=== PATIENT | male | born 1950 | race Caucasian/White ===

== ENCOUNTER 2017-12-24 13:47 | Emergency (ER) | payer MEDICARE, OTHER ==
[2017-12-24 14:35] LABS: ADD MAN DIFF? NO
[2017-12-24 14:37] LABS: WHITE BLOOD COUNT 7.7 10^3/ul (4.8-10.8)
[2017-12-24 14:37] LABS: ABNORMAL IP MESSAGE 1; BASOPHILS % 0.1 % (0.0-2.0); EOSINOPHILS % 0.3 % (0.0-7.0); HEMATOCRIT 23.2 % (42.0-52.0); HEMOGLOBIN 7.6 g/dl (14.0-18.0); LYMPHOCYTES # 0.5 10^3/ul (0.8-2.9); LYMPHOCYTES % 6.8 % (15.0-51.0); MEAN CORPUSCULAR HEMOGLOBIN 29.5 pg (29.0-33.0); MEAN CORPUSCULAR HGB CONC 32.8 g/dl (32.0-37.0); MEAN CORPUSCULAR VOLUME 89.9 fl (82.0-101.0); MEAN PLATELET VOLUME 8.4 fl (7.4-10.4); MONOCYTE # 0.5 10^3/ul (0.3-0.9); MONOCYTES % 6.8 % (0.0-11.0); NEUTROPHIL # 6.3 10^3/ul (1.6-7.5); NEUTROPHILS % 82.1 % (39.0-77.0); NUCLEATED RED BLOOD CELLS% 0.4 /100WBC (0.0-0.0); PLATELET COUNT 126 10^3/UL (140-415); POSITIVE DIFF @See below; RED BLOOD COUNT 2.58 10^6/ul (4.70-6.10)
[2017-12-24 14:58] LABS: INR 1.13; PROTIME 14.7 Sec (11.9-14.9); PT RATIO 1.1
[2017-12-24 14:59] LABS: PARTIAL THROMBOPLASTIN TIME 32.1 Sec (25.0-35.0)
[2017-12-24 15:22] LABS: ALANINE AMINOTRANSFERASE 69 IU/L (13-69); ALKALINE PHOSPHATASE 272 IU/L (42-121); ANION GAP 18 (8-16); ASPARTATE AMINO TRANSFERASE 68 IU/L (15-46); BILIRUBIN,INDIRECT 0.3 mg/dl (0-1.1); BILIRUBIN,TOTAL 0.3 mg/dl (0.2-1.3); BLOOD UREA NITROGEN 22 mg/dl (7-20); CALCIUM 8.2 mg/dl (8.4-10.2); CARBON DIOXIDE 22 mmol/L (21-31); CHLORIDE 94 mmol/L (97-110); CREATININE 0.54 mg/dl (0.61-1.24); GLUCOSE 127 mg/dl (70-220); POTASSIUM 4.5 mmol/L (3.5-5.1); SODIUM 129 mmol/L (135-144); TOTAL PROTEIN 6.3 g/dl (6.1-8.1)
[2017-12-24 17:03] LABS: IMMEDIATE SPIN CROSSMATCH 1 2
[2017-12-24] MEDS: HYDROCODONE/APAP (5/325) TAB PO (17:55)
[2017-12-24] MEDS: ONDANSETRON (ODT) 4 MG TAB ODT (17:55)
== END 2017-12-24 22:30 | disposition home or self-care (01) ==
LOC: E/R 22:30
DX: D64.9 Anemia, unspecified (principal); D69.6 Thrombocytopenia, unspecified; E87.1 Hypo-osmolality and hyponatremia; R94.5 Abnormal results of liver function studies; R40.2142 Coma scale, eyes open, spontaneous, at arrival to emergency department; R40.2252 Coma scale, best verbal response, oriented, at arrival to emergency department; R40.2362 Coma scale, best motor response, obeys commands, at arrival to emergency department; I10 Essential (primary) hypertension; Z85.46 Personal history of malignant neoplasm of prostate
CPT/HCPCS: 36415; 36430; 80053; 85025; 85610; 85730; 86850; 86900; 86901; 86920; 93005; 99285-25

== ENCOUNTER 2018-01-24 16:33 | Inpatient (IN) | payer MEDICARE, OTHER ==
[2018-01-24] MEDS: PIPER-TAZO 3.375 GM IV (PMX) 100 ML IVPB (19:56)
[2018-01-24] MEDS: ONDANSETRON 4 MG INJ IV (19:57)
[2018-01-24] MEDS: SODIUM CHLORIDE 0.9% 1L BAG IV* (19:57)
[2018-01-24] MEDS: morphine 4 MG/ML VIAL IV (19:57)
[2018-01-24 20:12] LABS: ABNORMAL IP MESSAGE 1; HEMATOCRIT 21.3 % (42.0-52.0); MEAN CORPUSCULAR HEMOGLOBIN 29.2 pg (29.0-33.0); MEAN CORPUSCULAR HGB CONC 32.4 g/dl (32.0-37.0); MEAN CORPUSCULAR VOLUME 90.3 fl (82.0-101.0); MEAN PLATELET VOLUME 9.8 fl (7.4-10.4); NUCLEATED RED BLOOD CELLS% 0.5 /100WBC (0.0-0.0); PLATELET COUNT 65 10^3/UL (140-415); POSITIVE DIFF @See below; RED BLOOD COUNT 2.36 10^6/ul (4.70-6.10); RED CELL DISTRIBUTION WIDTH 18.1 % (11.5-14.5)
[2018-01-24 20:12] LABS: WHITE BLOOD COUNT 6.4 10^3/ul (4.8-10.8)
[2018-01-24 20:24] LABS: ALANINE AMINOTRANSFERASE 63 IU/L (13-69); ALBUMIN 2.9 g/dl (3.3-4.9); ALKALINE PHOSPHATASE 449 IU/L (42-121); ANION GAP 17 (8-16); ASPARTATE AMINO TRANSFERASE 69 IU/L (15-46); BILIRUBIN,INDIRECT 0.3 mg/dl (0-1.1); BILIRUBIN,TOTAL 0.3 mg/dl (0.2-1.3); BLOOD UREA NITROGEN 18 mg/dl (7-20); CALCIUM 7.9 mg/dl (8.4-10.2); CARBON DIOXIDE 24 mmol/L (21-31); CHLORIDE 89 mmol/L (97-110); CREATININE 0.86 mg/dl (0.61-1.24); GLUCOSE 152 mg/dl (70-220); POTASSIUM 4.3 mmol/L (3.5-5.1); PROTIME 15.4 Sec (11.9-14.9); PT RATIO 1.2; SODIUM 126 mmol/L (135-144); TOTAL PROTEIN 6.1 g/dl (6.1-8.1)
[2018-01-24 20:25] LABS: PARTIAL THROMBOPLASTIN TIME 38.2 Sec (25.0-35.0)
[2018-01-24 20:28] LABS: ADD MAN DIFF? YES; HEMOGLOBIN 6.9 g/dl (14.0-18.0)
[2018-01-24 20:34] LABS: B-TYPE NATRIURETIC PEPTIDE 761 PG/ML (0-125)
[2018-01-24 20:36] LABS: ANISOCYTOSIS 1+ (0-0); BAND NEUTROPHILS #M 0.4 10^3/ul (0.0-0.6); BAND NEUTROPHILS % (M) 7 % (0-4); EOSINOPHILS % (M) 1 % (0-7); ERYTHROBLAST% (NRBC) (M) 1 % (0-0); LYMPHOCYTES #M 0.3 10^3/ul (0.8-2.9); LYMPHOCYTES % (M) 5 % (15-51); MICROCYTOSIS 1+ (0-0); MONOCYTE #M 0.1 10^3/ul (0.3-0.9); MONOCYTES % (M) 3 % (0-11); PLATELET ESTIMATE DECREASED; POLYCHROMASIA 2+ (0-0); SEG NEUT #M 5.4 10^3/ul (1.6-7.5); SEGMENTED NEUTROPHILS (M) % 84 % (39-77); SMUDGE%M 6 % (0-0)
[2018-01-24 20:37] LABS: TROPONIN-I < 0.012 ng/ml (0.00-0.12)
[2018-01-24 20:37] LABS: LACTIC ACID 2.2 mmol/L (0.5-2.0)
[2018-01-24 22:02] LABS: ADD UMIC YES; UR ASCORBIC ACID NEGATIVE (NEGATIVE); UR BILIRUBIN (Dip) NEGATIVE (NEGATIVE); UR BLOOD (Dip) 1+ mg/dL (NEGATIVE); UR CLARITY CLEAR (CLEAR); UR COLOR YELLOW (YELLOW); UR GLUCOSE (Dip) NEGATIVE (NEGATIVE); UR KETONES (Dip) NEGATIVE (NEGATIVE); UR LEUKOCYTE ESTERASE (Dip) NEGATIVE Leu/ul (NEGATIVE); UR NITRITE (Dip) NEGATIVE (NEGATIVE); UR RBC 1 /HPF (0-5); UR SPECIFIC GRAVITY (Dip) 1.009 (1.003-1.030); UR TOTAL PROTEIN (Dip) NEGATIVE (NEGATIVE); UR UROBILINOGEN (Dip) NEGATIVE (NEGATIVE); UR WBC 1 /HPF (0-5)
[2018-01-24] MEDS: morphine 2 MG INJ IV (22:02)
[2018-01-24] MEDS: HYDROCODONE/APAP (5/325) TAB PO (22:04)
[2018-01-24 22:25] LABS: LACTIC ACID 1.4 mmol/L (0.5-2.0)
[2018-01-25 00:04] LABS: LACTIC ACID 1.4 mmol/L (0.5-2.0)
[2018-01-25] MEDS: HYDROCODONE/APAP (10/325) TAB PO ×3 (05:09→19:40)
[2018-01-25] MEDS: SOD CHLORIDE 0.9% 1,000 ML IV (05:10)
[2018-01-25] MEDS: FUROSEMIDE 20 MG TAB PO (05:31)
[2018-01-25] MEDS: PANTOPRAZOLE 40 MG INJ IV (05:31)
[2018-01-25 07:11] LABS: ADD MAN DIFF? NO
[2018-01-25 07:20] LABS: WHITE BLOOD COUNT 6.5 10^3/ul (4.8-10.8)
[2018-01-25 07:20] LABS: ABNORMAL IP MESSAGE 1; BASOPHILS % 0.2 % (0.0-2.0); HEMATOCRIT 23.3 % (42.0-52.0); HEMOGLOBIN 7.6 g/dl (14.0-18.0); LYMPHOCYTES # 0.4 10^3/ul (0.8-2.9); LYMPHOCYTES % 5.7 % (15.0-51.0); MEAN CORPUSCULAR HEMOGLOBIN 29.1 pg (29.0-33.0); MEAN CORPUSCULAR HGB CONC 32.6 g/dl (32.0-37.0); MEAN CORPUSCULAR VOLUME 89.3 fl (82.0-101.0); MEAN PLATELET VOLUME 9.8 fl (7.4-10.4); MONOCYTE # 0.4 10^3/ul (0.3-0.9); MONOCYTES % 6.7 % (0.0-11.0); NEUTROPHIL # 5.4 10^3/ul (1.6-7.5); NEUTROPHILS % 84.1 % (39.0-77.0); NUCLEATED RED BLOOD CELLS% 0.5 /100WBC (0.0-0.0); PLATELET COUNT 55 10^3/UL (140-415); POSITIVE DIFF @See below; RED BLOOD COUNT 2.61 10^6/ul (4.70-6.10); RED CELL DISTRIBUTION WIDTH 16.9 % (11.5-14.5)
[2018-01-25 07:52] LABS: ALANINE AMINOTRANSFERASE 56 IU/L (13-69); ALBUMIN 2.5 g/dl (3.3-4.9); ALBUMIN/GLOBULIN RATIO 0.83; ALKALINE PHOSPHATASE 400 IU/L (42-121); ANION GAP 9 (8-16); ASPARTATE AMINO TRANSFERASE 63 IU/L (15-46); BILIRUBIN,INDIRECT 0.5 mg/dl (0-1.1); BILIRUBIN,TOTAL 0.5 mg/dl (0.2-1.3); BLOOD UREA NITROGEN 11 mg/dl (7-20); CALCIUM 7.8 mg/dl (8.4-10.2); CARBON DIOXIDE 27 mmol/L (21-31); CHLORIDE 98 mmol/L (97-110); CREATININE 0.52 mg/dl (0.61-1.24); GLUCOSE 117 mg/dl (70-220); SODIUM 130 mmol/L (135-144); TOTAL PROTEIN 5.5 g/dl (6.1-8.1)
[2018-01-25] MEDS: DOCUSATE SODIUM 100 MG CAP PO ×2 (08:34→20:43)
[2018-01-25] MEDS: FERROUS SULFATE (EC) 325 MG TAB PO ×2 (08:34→20:43)
[2018-01-25] MEDS: BENAZEPRIL 20 MG TAB PO (08:35)
[2018-01-25] MEDS ORDERED: ZOLPIDEM 5 MG TAB PO (16:00)
[2018-01-25] MEDS: CYCLOBENZAPRINE 10 MG TAB PO (16:34)
[2018-01-25] MEDS: SOD FERRIC GLUC COMPLX 125 MG in SOD CHLORIDE 0.9% 100 ML IVPB (16:34)
[2018-01-25] MEDS: CEFTRIAXONE 1 GM/50 ML (PMX) 50 ML IVPB (17:59)
[2018-01-26] MEDS: CYCLOBENZAPRINE 10 MG TAB PO ×3 (00:05→20:56)
[2018-01-26] MEDS: SOD CHLORIDE 0.9% 1,000 ML IV ×2 (01:00→14:05)
[2018-01-26] MEDS: HYDROCODONE/APAP (10/325) TAB PO ×3 (04:00→20:57)
[2018-01-26] MEDS: PANTOPRAZOLE 40 MG INJ IV (05:37)
[2018-01-26] MEDS: FUROSEMIDE 20 MG TAB PO (05:37)
[2018-01-26 08:41] LABS: ADD MAN DIFF? NO
[2018-01-26 08:47] LABS: ABNORMAL IP MESSAGE 1; BASOPHILS % 0.4 % (0.0-2.0); EOSINOPHILS % 0.2 % (0.0-7.0); HEMATOCRIT 22.2 % (42.0-52.0); HEMOGLOBIN 7.2 g/dl (14.0-18.0); LYMPHOCYTES # 0.4 10^3/ul (0.8-2.9); LYMPHOCYTES % 7.8 % (15.0-51.0); MEAN CORPUSCULAR HEMOGLOBIN 29.4 pg (29.0-33.0); MEAN CORPUSCULAR HGB CONC 32.4 g/dl (32.0-37.0); MEAN CORPUSCULAR VOLUME 90.6 fl (82.0-101.0); MEAN PLATELET VOLUME 9.7 fl (7.4-10.4); MONOCYTE # 0.4 10^3/ul (0.3-0.9); MONOCYTES % 7.6 % (0.0-11.0); NEUTROPHIL # 4.6 10^3/ul (1.6-7.5); NEUTROPHILS % 82.2 % (39.0-77.0); NUCLEATED RED BLOOD CELLS% 0.4 /100WBC (0.0-0.0); PLATELET COUNT 47 10^3/UL (140-415); POSITIVE DIFF @See below; RED BLOOD COUNT 2.45 10^6/ul (4.70-6.10); RED CELL DISTRIBUTION WIDTH 17.2 % (11.5-14.5)
[2018-01-26 08:47] LABS: WHITE BLOOD COUNT 5.5 10^3/ul (4.8-10.8)
[2018-01-26] MEDS ORDERED: BENAZEPRIL 20 MG TAB PO (09:00)
[2018-01-26 09:16] LABS: ANION GAP 11 (8-16); BLOOD UREA NITROGEN 8 mg/dl (7-20); CALCIUM 7.6 mg/dl (8.4-10.2); CARBON DIOXIDE 26 mmol/L (21-31); CHLORIDE 95 mmol/L (97-110); CREATININE 0.46 mg/dl (0.61-1.24); GLUCOSE 108 mg/dl (70-220); POTASSIUM 3.8 mmol/L (3.5-5.1); SODIUM 128 mmol/L (135-144)
[2018-01-26] MEDS: BENAZEPRIL 20 MG TAB PO (09:31)
[2018-01-26] MEDS: FERROUS SULFATE (EC) 325 MG TAB PO ×2 (09:31→20:54)
[2018-01-26] MEDS: DOCUSATE SODIUM 100 MG CAP PO ×2 (09:31→20:55)
[2018-01-26] MEDS: SOD FERRIC GLUC COMPLX 125 MG in SOD CHLORIDE 0.9% 100 ML IVPB (16:58)
[2018-01-26] MEDS: SOD CHLORIDE 0.9% 100 ML (16:59)
[2018-01-26] MEDS: IOHEXOL 300MG/ML 150 ML BTL (17:00)
[2018-01-26] MEDS: CEFTRIAXONE 1 GM/50 ML (PMX) 50 ML IVPB (18:03)
[2018-01-26] MEDS: CEPASTAT LOZENGE MT (21:14)
[2018-01-26 23:21] LABS: IMMEDIATE SPIN CROSSMATCH 1 3
[2018-01-27] MEDS: HYDROCODONE/APAP (10/325) TAB PO ×3 (04:15→20:04)
[2018-01-27] MEDS: PANTOPRAZOLE 40 MG INJ IV (06:19)
[2018-01-27] MEDS: FUROSEMIDE 20 MG TAB PO (06:20)
[2018-01-27 08:42] LABS: ADD MAN DIFF? NO
[2018-01-27 08:45] LABS: ABNORMAL IP MESSAGE 1; BASOPHILS % 0.4 % (0.0-2.0); EOSINOPHILS % 0.2 % (0.0-7.0); HEMATOCRIT 25.5 % (42.0-52.0); HEMOGLOBIN 8.4 g/dl (14.0-18.0); LYMPHOCYTES # 0.4 10^3/ul (0.8-2.9); LYMPHOCYTES % 6.6 % (15.0-51.0); MEAN CORPUSCULAR HEMOGLOBIN 29.6 pg (29.0-33.0); MEAN CORPUSCULAR HGB CONC 32.9 g/dl (32.0-37.0); MEAN CORPUSCULAR VOLUME 89.8 fl (82.0-101.0); MEAN PLATELET VOLUME 9.6 fl (7.4-10.4); MONOCYTE # 0.4 10^3/ul (0.3-0.9); MONOCYTES % 6.6 % (0.0-11.0); NEUTROPHIL # 4.7 10^3/ul (1.6-7.5); NEUTROPHILS % 83.5 % (39.0-77.0); PLATELET COUNT 46 10^3/UL (140-415); POSITIVE DIFF @See below; RED BLOOD COUNT 2.84 10^6/ul (4.70-6.10); RED CELL DISTRIBUTION WIDTH 16.4 % (11.5-14.5)
[2018-01-27 08:45] LABS: WHITE BLOOD COUNT 5.6 10^3/ul (4.8-10.8)
[2018-01-27 09:11] LABS: ANION GAP 12 (8-16); BLOOD UREA NITROGEN 6 mg/dl (7-20); CALCIUM 7.6 mg/dl (8.4-10.2); CARBON DIOXIDE 25 mmol/L (21-31); CHLORIDE 95 mmol/L (97-110); CREATININE 0.44 mg/dl (0.61-1.24); GLUCOSE 103 mg/dl (70-220); POTASSIUM 3.5 mmol/L (3.5-5.1); SODIUM 128 mmol/L (135-144)
[2018-01-27] MEDS: CEPASTAT LOZENGE MT (09:47)
[2018-01-27] MEDS: CYCLOBENZAPRINE 10 MG TAB PO ×2 (09:48→21:29)
[2018-01-27] MEDS: DOCUSATE SODIUM 100 MG CAP PO ×2 (09:48→21:29)
[2018-01-27] MEDS: FERROUS SULFATE (EC) 325 MG TAB PO ×2 (09:48→21:29)
[2018-01-27] MEDS: BENAZEPRIL 20 MG TAB PO (09:49)
[2018-01-27] MEDS: SOD FERRIC GLUC COMPLX 125 MG in SOD CHLORIDE 0.9% 100 ML IVPB (16:59)
[2018-01-27] MEDS: CEFTRIAXONE 1 GM/50 ML (PMX) 50 ML IVPB (17:10)
[2018-01-27] MEDS: TOLVAPTAN 15 MG TABLET PO (21:29)
[2018-01-28] MEDS: SOD CHLORIDE 0.9% 1,000 ML IV (01:00)
[2018-01-28] MEDS: HYDROCODONE/APAP (10/325) TAB PO ×3 (03:30→20:48)
[2018-01-28] MEDS: FUROSEMIDE 20 MG TAB PO (06:13)
[2018-01-28] MEDS: PANTOPRAZOLE 40 MG INJ IV (06:13)
[2018-01-28 09:39] LABS: ALANINE AMINOTRANSFERASE 50 IU/L (13-69); ALBUMIN 2.5 g/dl (3.3-4.9); ALBUMIN/GLOBULIN RATIO 0.86; ALKALINE PHOSPHATASE 355 IU/L (42-121); ANION GAP 14 (8-16); ASPARTATE AMINO TRANSFERASE 55 IU/L (15-46); BILIRUBIN,INDIRECT 0.4 mg/dl (0-1.1); BILIRUBIN,TOTAL 0.4 mg/dl (0.2-1.3); BLOOD UREA NITROGEN 6 mg/dl (7-20); CALCIUM 7.9 mg/dl (8.4-10.2); CARBON DIOXIDE 26 mmol/L (21-31); CHLORIDE 100 mmol/L (97-110); CREATININE 0.47 mg/dl (0.61-1.24); GLUCOSE 105 mg/dl (70-220); POTASSIUM 3.9 mmol/L (3.5-5.1); SODIUM 136 mmol/L (135-144); TOTAL PROTEIN 5.4 g/dl (6.1-8.1)
[2018-01-28] MEDS: DOCUSATE SODIUM 100 MG CAP PO ×2 (10:08→20:47)
[2018-01-28] MEDS: CYCLOBENZAPRINE 10 MG TAB PO ×2 (10:08→20:47)
[2018-01-28] MEDS: FERROUS SULFATE (EC) 325 MG TAB PO ×2 (10:08→20:48)
[2018-01-28] MEDS: BENAZEPRIL 20 MG TAB PO (10:08)
[2018-01-28] MEDS: METOCLOPRAMIDE 10 MG TAB PO (10:09)
[2018-01-28] MEDS: SOD FERRIC GLUC COMPLX 125 MG in SOD CHLORIDE 0.9% 100 ML IVPB (16:33)
[2018-01-28] MEDS: CEFTRIAXONE 1 GM/50 ML (PMX) 50 ML IVPB (18:01)
[2018-01-29] MEDS: HYDROCODONE/APAP (10/325) TAB PO ×3 (01:50→21:33)
[2018-01-29] MEDS: PANTOPRAZOLE 40 MG INJ IV (05:45)
[2018-01-29] MEDS: FUROSEMIDE 20 MG TAB PO (05:45)
[2018-01-29] MEDS: DOCUSATE SODIUM 100 MG CAP PO ×2 (08:16→21:26)
[2018-01-29] MEDS: FERROUS SULFATE (EC) 325 MG TAB PO ×2 (08:18→21:26)
[2018-01-29] MEDS: CYCLOBENZAPRINE 10 MG TAB PO ×2 (08:18→21:26)
[2018-01-29] MEDS: BENAZEPRIL 20 MG TAB PO (08:20)
[2018-01-29 08:40] LABS: ADD MAN DIFF? NO
[2018-01-29 08:51] LABS: ABNORMAL IP MESSAGE 1; BASOPHILS % 0.2 % (0.0-2.0); EOSINOPHILS % 0.4 % (0.0-7.0); HEMATOCRIT 24.7 % (42.0-52.0); HEMOGLOBIN 8.1 g/dl (14.0-18.0); LYMPHOCYTES # 0.4 10^3/ul (0.8-2.9); LYMPHOCYTES % 7.2 % (15.0-51.0); MEAN CORPUSCULAR HEMOGLOBIN 30.1 pg (29.0-33.0); MEAN CORPUSCULAR HGB CONC 32.8 g/dl (32.0-37.0); MEAN CORPUSCULAR VOLUME 91.8 fl (82.0-101.0); MONOCYTE # 0.4 10^3/ul (0.3-0.9); NEUTROPHIL # 4.2 10^3/ul (1.6-7.5); PLATELET COUNT 41 10^3/UL (140-415); POSITIVE DIFF @See below; RED BLOOD COUNT 2.69 10^6/ul (4.70-6.10)
[2018-01-29 09:45] LABS: ANION GAP 9 (8-16); BLOOD UREA NITROGEN 6 mg/dl (7-20); CALCIUM 7.9 mg/dl (8.4-10.2); CARBON DIOXIDE 26 mmol/L (21-31); CHLORIDE 100 mmol/L (97-110); GLUCOSE 109 mg/dl (70-220); POTASSIUM 3.3 mmol/L (3.5-5.1); SODIUM 132 mmol/L (135-144)
[2018-01-29] MEDS: POTASSIUM CHLORIDE (SR) 20 MEQ TAB PO (13:13)
[2018-01-29] MEDS ORDERED: BENZOCAINE 20% 0.33 OZ. GEL MM (16:00)
[2018-01-29 16:32] LABS: OCCULT BLOOD STOOL NEGATIVE (NEGATIVE)
[2018-01-29] MEDS: BENZOCAINE 20% 0.33 OZ. GEL MM (16:57)
[2018-01-29] MEDS: CEFTRIAXONE 1 GM/50 ML (PMX) 50 ML IVPB (17:53)
[2018-01-29] MEDS ORDERED: BENZOCAINE 10% 7 GM GEL MM (21:00)
[2018-01-30] MEDS: HYDROCODONE/APAP (10/325) TAB PO ×4 (01:28→20:39)
[2018-01-30] MEDS: PANTOPRAZOLE 40 MG INJ IV (06:24)
[2018-01-30] MEDS: FUROSEMIDE 20 MG TAB PO (06:25)
[2018-01-30 08:13] LABS: ADD MAN DIFF? NO
[2018-01-30 08:23] LABS: WHITE BLOOD COUNT 5.8 10^3/ul (4.8-10.8)
[2018-01-30 08:23] LABS: ABNORMAL IP MESSAGE 1; BASOPHILS % 0.2 % (0.0-2.0); EOSINOPHILS % 0.3 % (0.0-7.0); HEMATOCRIT 27.9 % (42.0-52.0); HEMOGLOBIN 9.1 g/dl (14.0-18.0); LYMPHOCYTES # 0.4 10^3/ul (0.8-2.9); LYMPHOCYTES % 7.1 % (15.0-51.0); MEAN CORPUSCULAR HEMOGLOBIN 30.2 pg (29.0-33.0); MEAN CORPUSCULAR HGB CONC 32.6 g/dl (32.0-37.0); MEAN CORPUSCULAR VOLUME 92.7 fl (82.0-101.0); MEAN PLATELET VOLUME 9.7 fl (7.4-10.4); MONOCYTE # 0.3 10^3/ul (0.3-0.9); MONOCYTES % 5.4 % (0.0-11.0); NEUTROPHIL # 4.9 10^3/ul (1.6-7.5); NEUTROPHILS % 84.9 % (39.0-77.0); PLATELET COUNT 55 10^3/UL (140-415); POSITIVE DIFF @See below; RED BLOOD COUNT 3.01 10^6/ul (4.70-6.10); RED CELL DISTRIBUTION WIDTH 16.9 % (11.5-14.5)
[2018-01-30] MEDS: FERROUS SULFATE (EC) 325 MG TAB PO ×2 (08:37→20:31)
[2018-01-30] MEDS: BENAZEPRIL 20 MG TAB PO (08:37)
[2018-01-30] MEDS: DOCUSATE SODIUM 100 MG CAP PO ×2 (08:37→20:31)
[2018-01-30] MEDS: CYCLOBENZAPRINE 10 MG TAB PO ×2 (08:37→20:31)
[2018-01-30 08:39] LABS: ANION GAP 14 (8-16); BLOOD UREA NITROGEN 8 mg/dl (7-20); CALCIUM 8.2 mg/dl (8.4-10.2); CARBON DIOXIDE 24 mmol/L (21-31); CHLORIDE 97 mmol/L (97-110); CREATININE 0.44 mg/dl (0.61-1.24); GLUCOSE 121 mg/dl (70-220); POTASSIUM 4.1 mmol/L (3.5-5.1); SODIUM 131 mmol/L (135-144)
[2018-01-30 08:43] LABS: B-TYPE NATRIURETIC PEPTIDE 788 PG/ML (0-125)
[2018-01-30] MEDS ORDERED: CEFEPIME HCL 1 GM VIAL IV (10:30)
[2018-01-30] MEDS: ALBUMIN HUMAN 25% 100 ML IV ×2 (10:51→20:31)
[2018-01-30] MEDS: CEFEPIME 1GM/50 ML IVPB (12:47)
[2018-01-30] MEDS: VANCOMYCIN 500MG/NS (PMX) 100 ML IVPB (13:52)
[2018-01-30] MEDS: FUROSEMIDE 20 MG INJ IV (16:14)
[2018-01-30 19:40] LABS: TROPONIN-I < 0.012 ng/ml (0.00-0.12)
[2018-01-31 02:06] LABS: TROPONIN-I 0.015 ng/ml (0.00-0.12)
[2018-01-31] MEDS: HYDROCODONE/APAP (10/325) TAB PO ×3 (03:05→18:36)
[2018-01-31] MEDS: PANTOPRAZOLE 40 MG INJ IV (06:12)
[2018-01-31] MEDS: FUROSEMIDE 20 MG TAB PO (06:12)
[2018-01-31] MEDS: FERROUS SULFATE (EC) 325 MG TAB PO ×2 (08:39→20:41)
[2018-01-31] MEDS: DOCUSATE SODIUM 100 MG CAP PO ×2 (08:39→20:41)
[2018-01-31] MEDS: CYCLOBENZAPRINE 10 MG TAB PO ×2 (08:39→20:44)
[2018-01-31] MEDS: ALBUMIN HUMAN 25% 100 ML IV (08:40)
[2018-01-31] MEDS: BENAZEPRIL 20 MG TAB PO ×2 (08:41→20:44)
[2018-01-31 08:43] LABS: ADD MAN DIFF? NO
[2018-01-31 08:50] LABS: WHITE BLOOD COUNT 5.3 10^3/ul (4.8-10.8)
[2018-01-31 08:50] LABS: ABNORMAL IP MESSAGE 1; BASOPHILS % 0.2 % (0.0-2.0); EOSINOPHILS % 0.4 % (0.0-7.0); HEMATOCRIT 23.6 % (42.0-52.0); HEMOGLOBIN 7.8 g/dl (14.0-18.0); LYMPHOCYTES # 0.4 10^3/ul (0.8-2.9); LYMPHOCYTES % 6.8 % (15.0-51.0); MEAN CORPUSCULAR HEMOGLOBIN 30.1 pg (29.0-33.0); MEAN CORPUSCULAR HGB CONC 33.1 g/dl (32.0-37.0); MEAN CORPUSCULAR VOLUME 91.1 fl (82.0-101.0); MEAN PLATELET VOLUME 10.7 fl (7.4-10.4); MONOCYTE # 0.3 10^3/ul (0.3-0.9); MONOCYTES % 6.4 % (0.0-11.0); NEUTROPHIL # 4.5 10^3/ul (1.6-7.5); NEUTROPHILS % 84.1 % (39.0-77.0); POSITIVE DIFF @See below; RED BLOOD COUNT 2.59 10^6/ul (4.70-6.10); RED CELL DISTRIBUTION WIDTH 16.5 % (11.5-14.5)
[2018-01-31 08:55] LABS: PLATELET COUNT 42 10^3/UL (140-415)
[2018-01-31 09:09] LABS: ANION GAP 10 (8-16); BLOOD UREA NITROGEN 6 mg/dl (7-20); CALCIUM 7.9 mg/dl (8.4-10.2); CARBON DIOXIDE 30 mmol/L (21-31); CHLORIDE 93 mmol/L (97-110); CREATININE 0.38 mg/dl (0.61-1.24); GLUCOSE 109 mg/dl (70-220); POTASSIUM 3.8 mmol/L (3.5-5.1); SODIUM 129 mmol/L (135-144)
[2018-01-31 09:29] LABS: PHOSPHORUS 3.7 mg/dl (2.5-4.9)
[2018-01-31 09:29] LABS: MAGNESIUM 1.5 mg/dl (1.7-2.5)
[2018-01-31] MEDS: CEPASTAT LOZENGE MT (10:12)
[2018-01-31] MEDS: MAGNESIUM SULFATE 2 GM/50 ML 50 ML IVPB (10:13)
[2018-01-31] MEDS: CEFEPIME 1GM/50 ML IVPB (14:17)
[2018-01-31] MEDS: morphine 2 MG INJ IV (19:49)
[2018-02-01] MEDS: HYDROCODONE/APAP (10/325) TAB PO ×4 (02:05→16:24)
[2018-02-01] MEDS: CEPASTAT LOZENGE MT (02:55)
[2018-02-01] MEDS: FUROSEMIDE 20 MG TAB PO (07:01)
[2018-02-01] MEDS: PANTOPRAZOLE 40 MG INJ IV (07:01)
[2018-02-01] MEDS: FERROUS SULFATE (EC) 325 MG TAB PO ×2 (08:35→22:42)
[2018-02-01] MEDS: DOCUSATE SODIUM 100 MG CAP PO ×2 (08:35→22:41)
[2018-02-01] MEDS: CYCLOBENZAPRINE 10 MG TAB PO ×2 (08:35→22:32)
[2018-02-01] MEDS: BENAZEPRIL 20 MG TAB PO ×2 (08:37→22:42)
[2018-02-01 09:28] LABS: ABNORMAL IP MESSAGE 1; HEMATOCRIT 24.5 % (42.0-52.0); HEMOGLOBIN 8.1 g/dl (14.0-18.0); MEAN CORPUSCULAR HEMOGLOBIN 30.1 pg (29.0-33.0); MEAN CORPUSCULAR HGB CONC 33.1 g/dl (32.0-37.0); MEAN CORPUSCULAR VOLUME 91.1 fl (82.0-101.0); MEAN PLATELET VOLUME 11.5 fl (7.4-10.4); POSITIVE DIFF @See below; RED BLOOD COUNT 2.69 10^6/ul (4.70-6.10); RED CELL DISTRIBUTION WIDTH 17.1 % (11.5-14.5)
[2018-02-01 09:28] LABS: WHITE BLOOD COUNT 6.8 10^3/ul (4.8-10.8)
[2018-02-01 09:32] LABS: ADD MAN DIFF? YES; PLATELET COUNT 41 10^3/UL (140-415)
[2018-02-01 09:42] LABS: ANION GAP 15 (8-16); BLOOD UREA NITROGEN 8 mg/dl (7-20); CALCIUM 7.4 mg/dl (8.4-10.2); CARBON DIOXIDE 24 mmol/L (21-31); CHLORIDE 90 mmol/L (97-110); CREATININE 0.35 mg/dl (0.61-1.24); GLUCOSE 112 mg/dl (70-220); POTASSIUM 4.2 mmol/L (3.5-5.1); SODIUM 125 mmol/L (135-144)
[2018-02-01 09:50] LABS: PHOSPHORUS 2.9 mg/dl (2.5-4.9)
[2018-02-01 09:50] LABS: MAGNESIUM 1.9 mg/dl (1.7-2.5)
[2018-02-01 11:08] LABS: ANISOCYTOSIS 1+ (0-0); BAND NEUTROPHILS #M 0.7 10^3/ul (0.0-0.6); BAND NEUTROPHILS % (M) 11 % (0-4); LYMPHOCYTES #M 0.2 10^3/ul (0.8-2.9); LYMPHOCYTES % (M) 4 % (15-51); MICROCYTOSIS 1+ (0-0); MONOCYTE #M 0.2 10^3/ul (0.3-0.9); MONOCYTES % (M) 3 % (0-11); PLATELET ESTIMATE SIG DECREASED; POIKILOCYTOSIS 1+ (0-0); POLYCHROMASIA 3+ (0-0); SEG NEUT #M 5.6 10^3/ul (1.6-7.5); SEGMENTED NEUTROPHILS (M) % 82 % (39-77); SMUDGE%M 4 % (0-0)
[2018-02-01] MEDS: CEFEPIME 1GM/50 ML IVPB (11:15)
[2018-02-01 19:37] LABS: SODIUM 122 mmol/L (135-144)
[2018-02-01] MEDS: LORAZEPAM 2 MG INJ IV (21:18)
[2018-02-02] MEDS: HYDROCODONE/APAP (10/325) TAB PO ×6 (01:48→21:09)
[2018-02-02] MEDS: DEXAMETHASONE 4 MG TAB PO (01:48)
[2018-02-02] MEDS: PANTOPRAZOLE (EC) 40 MG TAB PO (06:29)
[2018-02-02] MEDS: FERROUS SULFATE (EC) 325 MG TAB PO ×2 (09:01→21:09)
[2018-02-02] MEDS: DOCUSATE SODIUM 100 MG CAP PO ×2 (09:01→21:10)
[2018-02-02] MEDS: BENAZEPRIL 20 MG TAB PO ×2 (09:01→21:10)
[2018-02-02] MEDS: CYCLOBENZAPRINE 10 MG TAB PO ×2 (09:01→21:10)
[2018-02-02 09:54] LABS: ADD UMIC YES; UR ASCORBIC ACID NEGATIVE (NEGATIVE); UR BILIRUBIN (Dip) NEGATIVE (NEGATIVE); UR BLOOD (Dip) 1+ mg/dL (NEGATIVE); UR CLARITY CLEAR (CLEAR); UR COLOR YELLOW (YELLOW); UR GLUCOSE (Dip) NEGATIVE (NEGATIVE); UR KETONES (Dip) TRACE mg/dL (NEGATIVE); UR LEUKOCYTE ESTERASE (Dip) NEGATIVE Leu/ul (NEGATIVE); UR NITRITE (Dip) NEGATIVE (NEGATIVE); UR RBC 10 /HPF (0-5); UR SPECIFIC GRAVITY (Dip) 1.009 (1.003-1.030); UR TOTAL PROTEIN (Dip) NEGATIVE (NEGATIVE); UR UROBILINOGEN (Dip) 2+ mg/dL (NEGATIVE); UR WBC 1 /HPF (0-5)
[2018-02-02] MEDS: CEFEPIME 1GM/50 ML IVPB (10:24)
[2018-02-02] MEDS ORDERED: BISACODYL 10 MG SUPP PR (13:30)
[2018-02-02 13:56] LABS: ADD UMIC YES; UR ASCORBIC ACID NEGATIVE (NEGATIVE); UR BACTERIA FEW /HPF (NONE SEEN); UR BILIRUBIN (Dip) NEGATIVE (NEGATIVE); UR BLOOD (Dip) 2+ mg/dL (NEGATIVE); UR CLARITY CLEAR (CLEAR); UR COLOR YELLOW (YELLOW); UR GLUCOSE (Dip) NEGATIVE (NEGATIVE); UR KETONES (Dip) NEGATIVE (NEGATIVE); UR LEUKOCYTE ESTERASE (Dip) NEGATIVE Leu/ul (NEGATIVE); UR NITRITE (Dip) NEGATIVE (NEGATIVE); UR RBC 6 /HPF (0-5); UR SPECIFIC GRAVITY (Dip) 1.008 (1.003-1.030); UR TOTAL PROTEIN (Dip) NEGATIVE (NEGATIVE); UR UROBILINOGEN (Dip) 1+ mg/dL (NEGATIVE); UR WBC 0 /HPF (0-5)
[2018-02-02] MEDS: ERGOCALCIFEROL 50,000 UNIT CAP PO (14:48)
[2018-02-02] MEDS: SOD FERRIC GLUC COMPLX 125 MG in SOD CHLORIDE 0.9% 100 ML IVPB (17:37)
[2018-02-02 17:49] LABS: ANION GAP 11 (8-16); BLOOD UREA NITROGEN 12 mg/dl (7-20); CALCIUM 8.1 mg/dl (8.4-10.2); CARBON DIOXIDE 26 mmol/L (21-31); CHLORIDE 88 mmol/L (97-110); CREATININE 0.44 mg/dl (0.61-1.24); GLUCOSE 136 mg/dl (70-220); POTASSIUM 4.5 mmol/L (3.5-5.1)
[2018-02-02 17:51] LABS: ALANINE AMINOTRANSFERASE 47 IU/L (13-69); ASPARTATE AMINO TRANSFERASE 82 IU/L (15-46); SODIUM 120 mmol/L (135-144)
[2018-02-02 17:51] LABS: SODIUM 121 mmol/L (135-144)
[2018-02-02] MEDS: DEXAMETHASONE 10 MG/ML 1 ML INJ IV ×2 (18:27→23:39)
[2018-02-02] MEDS: TOLVAPTAN 15 MG TABLET PO (18:27)
[2018-02-02 19:13] LABS: PROSTATE SPECIFIC ANTIGEN 99.9 ng/ml (0.0-4.0)
[2018-02-02 23:24] LABS: SODIUM,URINE RANDOM 29 mmol/L (30-90)
[2018-02-03 01:15] LABS: SODIUM 123 mmol/L (135-144)
[2018-02-03] MEDS: PANTOPRAZOLE (EC) 40 MG TAB PO (05:33)
[2018-02-03] MEDS: DEXAMETHASONE 10 MG/ML 1 ML INJ IV (05:34)
[2018-02-03] MEDS: morphine 2 MG INJ IV (05:48)
[2018-02-03 06:19] LABS: ADD MAN DIFF? NO
[2018-02-03 06:34] LABS: ABNORMAL IP MESSAGE 1; BASOPHILS % 0.1 % (0.0-2.0); HEMATOCRIT 27.4 % (42.0-52.0); HEMOGLOBIN 8.9 g/dl (14.0-18.0); LYMPHOCYTES # 0.5 10^3/ul (0.8-2.9); LYMPHOCYTES % 5.9 % (15.0-51.0); MEAN CORPUSCULAR HEMOGLOBIN 29.7 pg (29.0-33.0); MEAN CORPUSCULAR HGB CONC 32.5 g/dl (32.0-37.0); MEAN CORPUSCULAR VOLUME 91.3 fl (82.0-101.0); MONOCYTE # 0.4 10^3/ul (0.3-0.9); MONOCYTES % 4.6 % (0.0-11.0); NEUTROPHIL # 7.5 10^3/ul (1.6-7.5); NEUTROPHILS % 88.3 % (39.0-77.0); POSITIVE DIFF @See below; RED CELL DISTRIBUTION WIDTH 16.9 % (11.5-14.5)
[2018-02-03 06:34] LABS: WHITE BLOOD COUNT 8.5 10^3/ul (4.8-10.8)
[2018-02-03 06:58] LABS: PLATELET COUNT 66 10^3/UL (140-415)
[2018-02-03 07:21] LABS: ANION GAP 15 (8-16); BLOOD UREA NITROGEN 14 mg/dl (7-20); CALCIUM 8.9 mg/dl (8.4-10.2); CARBON DIOXIDE 26 mmol/L (21-31); CHLORIDE 93 mmol/L (97-110); CREATININE 0.47 mg/dl (0.61-1.24); GLUCOSE 161 mg/dl (70-220); POTASSIUM 4.6 mmol/L (3.5-5.1); SODIUM 129 mmol/L (135-144)
[2018-02-03] MEDS: DOCUSATE SODIUM 100 MG CAP PO (08:56)
[2018-02-03] MEDS: CYCLOBENZAPRINE 10 MG TAB PO (08:56)
[2018-02-03] MEDS: BENAZEPRIL 20 MG TAB PO (08:56)
[2018-02-03] MEDS: FERROUS SULFATE (EC) 325 MG TAB PO (08:56)
[2018-02-03] MEDS: HYDROCODONE/APAP (10/325) TAB PO (09:02)
[2018-02-03 09:30] LABS: SODIUM 130 mmol/L (135-144)
== END 2018-02-03 13:34 | disposition hospice, home (50) | DRG 722 ==
LOC: E/R 16:33 → TEL 20:42
PROC: 30233N1 Transfusion of Nonautologous Red Blood Cells into Peripheral Vein, Percutaneous Approach (ICD-10-PCS; principal; 2018-01-25)
DX: C61 Malignant neoplasm of prostate (principal); J18.9 Pneumonia, unspecified organism; C79.51 Secondary malignant neoplasm of bone; C79.31 Secondary malignant neoplasm of brain; E22.2 Syndrome of inappropriate secretion of antidiuretic hormone; D61.818 Other pancytopenia; D63.0 Anemia in neoplastic disease; T46.4X5A Adverse effect of angiotensin-converting-enzyme inhibitors, initial encounter; E66.9 Obesity, unspecified; I10 Essential (primary) hypertension; M25.512 Pain in left shoulder; M25.511 Pain in right shoulder; R73.9 Hyperglycemia, unspecified; R94.31 Abnormal electrocardiogram [ECG] [EKG]; R06.02 Shortness of breath; R26.2 Difficulty in walking, not elsewhere classified; R73.03 Prediabetes; R60.0 Localized edema; Z68.30 Body mass index [BMI] 30.0-30.9, adult; Z90.49 Acquired absence of other specified parts of digestive tract; Z87.891 Personal history of nicotine dependence
CPT/HCPCS: 36415; 36430; 70490; 70553; 71045; 72157; 72158; 73510; 73560; 80048; 80053; 81001; 82270; 83036; 83605; 83735; 83880; 84100; 84153; 84154; 84295; 84300; 84450; 84460; 84484; 85025; 85610; 85730; 86644; 86850; 86900; 86901; 86920; 87040; 87086; 93005; 93306; 93971; 96374; 96375; 96376; 97110; 97162; 97530; 99291-25